=== PATIENT | male | born 1995 | race Caucasian/White ===

== ENCOUNTER 2018-11-26 02:09 | Emergency (ER) | payer SELFPAY ==
[~2018-11-26] VITALS: Ht 177.8 cm; Wt 117.9 kg
[2018-11-26 02:20] VITALS: BP 158/77
--- NOTE | 2018-11-26 02:32 | PHYS DOC ---
Past History Past Medical History: No Pertinent History Past Surgical History: No Surgical History Smoking: Cigarettes Alcohol Use: None Drug Use: None Adult General Chief Complaint Chief Complaint: UPPER EXTREMITY SWELLING HPI HPI 23-year-old male presents with one-hour history of right ring finger swelling w ith stuck ring. Patient reports he put the ring on and subsequently ended up with some significant swelling to that finger. Reports it is so tight he is unable to remove it. Reports subsequent numbness of finger. Denies known trauma. Denies fever or chills. Review of Systems Review of Systems Constitutional: Denies fever or chills Eyes: Denies redness or eye pain HENT: Denies nasal congestion or sore throat Respiratory: Denies cough or shortness of breath Cardiovascular: Denies chest pain or palpitations GI: Denies abdominal pain, nausea, or vomiting : Denies dysuria or hematuria Musculoskeletal: Denies back pain or joint pain; reports pain to right ring finger Integument: Denies rash or skin lesions, reports swelling to right ring finger Neurologic: Denies headache, focal weakness or sensory changes; reports numbness to right ring finger Complete systems were reviewed and found to be within normal limits, except as documented in this note. Physical Exam Physical Exam Constitutional: Well developed, well nourished, no acute distress, non-toxic appearance HENT: Normocephalic, atraumatic Eyes: Conjunctiva normal, no discharge Neck: Normal range of motion, no tenderness, supple Cardiovascular: CR < 2 sec, right radial pulse +2 Lungs & Thorax: No respiratory distress Abdomen: Soft, no tenderness Skin: Warm, dry, swelling to right ring finger distal to metal ring Extremities: No tenderness, ROM intact, right ring finger with swelling noted Neurologic: Alert and oriented X 3, no focal deficits noted Psychologic: Affect normal, judgement normal Current Patient Data Vital Signs Vital Signs Date Time Temp Pulse Resp B/P (MAP) Pulse Ox O2 Delivery O2 Flow Rate FiO2 11/26/18 02:20 98 18 98 Room Air EKG EKG [] Radiology/Procedures Radiology/Procedures [] Course & Med Decision Making Course & Med Decision Making Patient presents with history of present illness and physical exam consistent for external swelling of finger due to constriction of metal breathing. Ring cutter utilized and successfully removed the ring. Patient reports interval improvement of symptoms. Patient stable for discharge with outpatient follow-up with PCP. Discussed findings and plan with patient, who acknowledges understanding and agreement. [employer] Disclaimer Dragon Disclaimer This electronic medical record was generated, in whole or in part, using a voice recognition dictation system. Departure Departure: Impression: Primary Impression: External constriction of right ring finger, initial encounter Additional Impression: Tight ring on finger Disposition: HOME, SELF-CARE Condition: IMPROVED Referrals: PCP,NO (PCP) Additional Instructions: You had constriction of your finger due to an external ring which was removed. Please refrain from placement of another ring to finger. Additional Procedures Progress Verbal consent obtained. Time out performed. Hand hygiene utilized. Motorized ring cutter utilized to cut through patient's metal ring. Ring stretched and successfully removed. Patient tolerated procedure well and without difficulty. Problem Qualifiers DHARMESH GARCIA DO Nov 26, 2018 02:32
== END 2018-11-26 02:34 | disposition home or self-care (01) ==
LOC: ER 02:09
DX: S60.454A Superficial foreign body of right ring finger, initial encounter (principal); F17.210 Nicotine dependence, cigarettes, uncomplicated; W49.04XA Ring or other jewelry causing external constriction, initial encounter; Y93.89 Activity, other specified; Y92.89 Other specified places as the place of occurrence of the external cause; Y99.8 Other external cause status
CPT/HCPCS: 99284